=== PATIENT | female | born 1970 | race Caucasian/White ===

== ENCOUNTER → 2016-05-29 | Outpatient (CLI) | payer BC ==
--- NOTE | 2016-05-29 11:24 | XR ---
EXAMINATION TYPE: XR knee limited LT DATE OF EXAM: 05/29/2016 11:19 AM COMPARISON: 03/22/2010 HISTORY: Pain TECHNIQUE: Two views are submitted. FINDINGS: Joint spaces are preserved. Osseous structures are intact. No acute fracture seen. IMPRESSION: 1. No acute fracture or dislocation.
== END | disposition home or self-care (01) ==
LOC: RADXRMAIN 10:53
PROVIDERS: ATTEND Family Medicine
DX: M25.562 Pain in left knee (principal)

== ENCOUNTER → 2017-10-23 | Outpatient (CLI) | payer BC ==
--- NOTE | 2017-10-28 09:50 | MM ---
Reason for exam: screening (asymptomatic). Last mammogram was performed 2 years ago. Physical Findings: A clinical breast exam by your physician is recommended on an annual basis and results should be correlated with mammographic findings. MG 3D Screening Mammo W/Cad Bilateral CC and MLO view(s) were taken. Prior study comparison: October 27, 2015, bilateral MG screening mammo w CAD. May 25, 2011, bilateral digital screening mammo w/CAD. The breast tissue is heterogeneously dense. This may lower the sensitivity of mammography. There is no discrete abnormality. No significant changes when compared with prior studies. ASSESSMENT: Negative, BI-RAD 1 RECOMMENDATION: Routine screening mammogram of both breasts in 1 year.
== END | disposition home or self-care (01) ==
LOC: RADMAMWWP 09:42
PROVIDERS: ATTEND Family Medicine
DX: Z12.31 Encounter for screening mammogram for malignant neoplasm of breast (principal)
CPT/HCPCS: 77063; 77067

== ENCOUNTER → 2017-11-13 | Outpatient (CLI) | payer BC ==
[2017-11-13 11:06] LABS: T4, Free (Free Thyroxine) 0.86 ng/dL (0.78-2.19)
[2017-11-13 16:32] LABS: Progesterone 8.1 ng/mL; Vitamin D 25 Hydroxy 27.2 ng/mL (30.0-100.0)
[2017-11-13 16:37] LABS: Thyroid Peroxidase Antibodies 495.3 U/mL (0.0-60.0)
== END | disposition home or self-care (01) ==
LOC: LABWHC1 09:51
PROVIDERS: ATTEND Obstetrics & Gynecology
DX: E04.9 Nontoxic goiter, unspecified (principal); N92.0 Excessive and frequent menstruation with regular cycle; L65.9 Nonscarring hair loss, unspecified; R53.83 Other fatigue
CPT/HCPCS: 36415; 82306; 82607; 82670; 83001; 84144; 84403; 84439; 84443; 86376

== ENCOUNTER → 2018-01-09 | Outpatient (CLI) | payer BC | END | disposition home or self-care (01) | LOC: LABWHC1 11:54 | PROVIDERS: ATTEND Obstetrics & Gynecology | DX: E03.9 Hypothyroidism, unspecified (principal); N95.9 Unspecified menopausal and perimenopausal disorder; L65.9 Nonscarring hair loss, unspecified | CPT/HCPCS: 36415; 82670; 83001; 84403; 84443 ==

== ENCOUNTER → 2018-11-04 | Outpatient (CLI) | payer BC | LOC: LABWHC1 10:24 | PROVIDERS: ATTEND Internal Medicine Endocrinology, Diabetes & Metabolism | DX: E03.8 Other specified hypothyroidism (principal); R53.83 Other fatigue | CPT/HCPCS: 36415; 82024; 82533; 84443 ==

== ENCOUNTER → 2018-11-28 | Outpatient (CLI) | payer BC ==
--- NOTE | 2018-11-30 09:49 | US ---
EXAMINATION TYPE: US thyroid st tissue head/neck DATE OF EXAM: 11/28/2018 COMPARISON: NONE CLINICAL HISTORY: E04.9 Thyroid Nodule. Pt on thyroid meds x 1 year, goiter GLAND SIZE: Right Lobe: 4.2 x 1.4 x 1.3 cm Overall Parenchyma: heterogenous Left Lobe: 3.8 x 1.5 x 1.2 cm Overall Parenchyma: heterogeneous Isthmus Thickness: 0.2 cm Bilateral neck scanned, no evidence of lymphadenopathy. Heterogeneous gland bilaterally, no evidence of nodules. IMPRESSION: Normal thyroid scan
== END | disposition home or self-care (01) ==
LOC: RADUSMAIN 16:13
PROVIDERS: ATTEND Internal Medicine Endocrinology, Diabetes & Metabolism
DX: E04.9 Nontoxic goiter, unspecified (principal)
CPT/HCPCS: 76536

== ENCOUNTER → 2019-09-04 | Outpatient (CLI) | payer BC | END | disposition home or self-care (01) | LOC: LABWHC1 09:02 | PROVIDERS: ATTEND Internal Medicine Endocrinology, Diabetes & Metabolism | DX: E03.8 Other specified hypothyroidism (principal) | CPT/HCPCS: 36415; 84443 ==

== ENCOUNTER → 2020-05-27 | Outpatient (CLI) | payer BC | END | disposition home or self-care (01) | LOC: LABWHC1 14:34 | PROVIDERS: ATTEND Internal Medicine Endocrinology, Diabetes & Metabolism | DX: E03.8 Other specified hypothyroidism (principal) | CPT/HCPCS: 36415; 84443 ==

== ENCOUNTER → 2020-11-08 | Outpatient (CLI) | payer BC ==
[2020-11-08 10:48] LABS: Basophils % (A) 1 %; Eosinophils # (A) 0.2 k/uL (0-0.7); Eosinophils % (A) 4 %; HCT 42.4 % (34.0-46.0); Lymphocytes % (A) 18 %; MCH 30.5 pg (25.0-35.0); MCHC 33.1 g/dL (31.0-37.0); Mean Platelet Volume 7.3; Monocytes # (A) 0.3 k/uL (0-1.0); Monocytes % (A) 6 %; Neutrophils # (A) 3.8 k/uL (1.3-7.7); Neutrophils % (A) 70 %; Platelet Count 236 k/uL (150-450); RBC 4.61 m/uL (3.80-5.40); RDW 13.5 % (11.5-15.5); WBC 5.5 k/uL (3.8-10.6)
== END | disposition home or self-care (01) ==
LOC: LABPAT 08:51
PROVIDERS: ATTEND Obstetrics & Gynecology
DX: Z01.812 Encounter for preprocedural laboratory examination (principal); N94.6 Dysmenorrhea, unspecified; N92.0 Excessive and frequent menstruation with regular cycle
CPT/HCPCS: 36415; 85025

== ENCOUNTER 2020-11-14 10:09 | Day surgery (SDC) | payer BC ==
[2020-11-09 10:49] VITALS: BMI 30.7
--- NOTE | 2020-11-10 12:02 | HP ---
HISTORY AND PHYSICAL DATE OF ADMISSION: 11/14/2020 This is a 50-year-old white female who presented with bleeding complaints. Menses are regular, very heavy, and painful despite the use of [id number] nonsteroidal products. Her partner has a longstanding history of male factor infertility. She is requesting NovaSure endometrial ablation. Endometrial biopsy in the office is negative. PAST MEDICAL HISTORY: Significant for asthma, goiter, thyroid disease. PAST SURGICAL HISTORY: section 1995, previous tubal ligation. CURRENT MEDICATIONS: 1. Advair Diskus 250/150 mcg inhaler Blister with device. 2. Biotin daily. 3. FiberCon daily. 4. Fish oil daily. 5. L-Lysine daily. 6. Multivitamin daily. 7. Synthroid 75 mcg daily. ALLERGIES: NONE KNOWN. FAMILY HISTORY: Significant for diabetes, hypertension, unspecified heart issues. OBSTETRIC HISTORY: Vaginal delivery in 1992, and tubal ligation in 1995. SOCIAL HISTORY: Patient has never been a smoker. Current alcohol use just on occasion. She is employed at [employer] locally. She is single. REVIEW OF SYSTEMS: Review of systems is otherwise negative. PHYSICAL EXAMINATION: Patient is 5 feet 6 inches, 189 pounds. Blood pressure 128/80. GENERAL: General exam revealed negative HEENT, no thyromegaly, no cervical lymphadenopathy, trachea midline. Breasts are bilaterally symmetric with no skin changes, nipple discharge, axillary adenopathy or discernible lesions or masses. ABDOMEN: Soft, nontender. Normal bowel sounds. No organosplenomegaly. No tenderness. Cardiac exam reveals regular rate and rhythm with no murmur, click or rub. CHEST: Clear to auscultation in all ta anteriorly and posteriorly. Extremities reveal no edema, good range of motion, no diminished pulses. On pelvic exam, cervix is multiparous, uterus is small, anteverted, anteflexed, mobile, nontender and smooth. Adnexa are negative bilaterally. Rectal exam reveals good sphincter tone, no hemorrhoids, no rectal masses. IMPRESSION: Hypermenorrhea, dysmenorrhea, patient requesting NovaSure endometrial ablation. The risks, benefits and alternatives of this plan have been discussed in detail. We reviewed the risks of bleeding, infection, perforation or damage to the bladder, bowels, ureters or any pelvic organs. Risks of anesthesia, aspiration, nerve damage or even have been discussed. The ACOG pamphlet and the pamphlet on NovaSure ablation have been given and reviewed by the patient. All questions answered. MMODL / IJN: [id number] /
[~2020-11-14 10:09] MED LIST: DEXAMETHASONE SOD PHOSPHATE 4 MG/ML 1 ML VIAL IV ONE; HYDROmorphone 0.5 MG/0.5 ML SYRINGE IVP PRN; LACTATED RINGERS 1,000 ML IV SCH; ONDANSETRON 4 MG/2 ML VIAL IVP ONE; Pre Op ABX Message 1 EACH MISC MISCELLANE ONE
[2020-11-14] MEDS ORDERED: LIDOCAINE 1% (10MG/ML) FOR IV START INTRADERMA ONE (11:03)
[2020-11-14] MEDS ORDERED: MIDAZOLAM 2 MG/2 ML VIAL ONE (11:15)
[2020-11-14] MEDS ORDERED: KETOROLAC 15 MG/ML 1 ML VIAL ONE (11:15)
[2020-11-14] MEDS ORDERED: LIDOCAINE 1% INJ 10MG/ML (20 ML MDV) ONE (11:15)
[2020-11-14] MEDS ORDERED: fentaNYL (PF) 50 MCG/ML 2 ML AMP ONE (11:15)
[2020-11-14] MEDS ORDERED: PROPOFOL 10 MG/ML 20 ML VIAL IV ONE (11:15)
[2020-11-14 11:47] VITALS: TEMP 97.2
--- NOTE | 2020-11-14 11:49 | P.OP ---
Date of Procedure: 11/14/20 Preoperative Diagnosis: hypermenorrhea, novasure ablation Postoperative Diagnosis: same Procedure(s) Performed: hysteroscopy, novasure ablation Anesthesia: USMANA Surgeon: Angie Tamayo Estimated Blood Loss (ml): 5 IV fluids (ml): 300 Urine output (ml): 200 Pathology: none sent Condition: stable Disposition: PACU Operative Findings: normal apperaing endometrial cavity Description of Procedure: Patient is brought to the operating suite where general anesthetic is administered without difficulty. She's placed in the dorsal lithotomy position. The appropriate timeout is performed to assure proper patient and procedural identification. Urine hCG is negative. Bladder is drained for approximately 200 mL of clear yellow urine. Weighted speculum was placed into the vagina. Anterior lip of the cervix is grasped with a double-tooth tenaculum. Cervix sounds to a depth of 10 cm in the anteverted position. Cervix is gently and systematically dilated using Hanks dilators. Hysteroscope was placed. Cavity is distended using sterile saline. Inspection of the cavity reveals normal- appearing ostia, no fibroids or defects. Hysteroscope was removed. The NovaSure wand is then placed and seated. The uterine length of 6.5 cm is calibrated, width of 4.3 cm is noted. The machine is properly enabled. For 51 seconds and a power the 154 W. the procedure is carried out. When completed, the NovaSure wand is removed. Hysteroscope was once again placed and the cavity is noted to be thoroughly and uniformly blanched. Toradol is given prior to leaving the operative suite. All sponge needle and enhancement counts are correct. Patient is brought back to recovery room in excellent condition with a blood pressure 137/68, pulse 70, 97% O2 saturation. She will follow-up with me in the office in 2 weeks.
[2020-11-14 13:00] VITALS: RESP 18
[2020-11-14 13:12] VITALS: BP 162/79; PULSE 59
== END 2020-11-14 13:30 | disposition home or self-care (01) ==
LOC: OR 10:09
PROVIDERS: ATTEND Obstetrics & Gynecology
DX: N92.0 Excessive and frequent menstruation with regular cycle (principal); J45.909 Unspecified asthma, uncomplicated; E03.9 Hypothyroidism, unspecified; Z79.890 Hormone replacement therapy
CPT/HCPCS: 58563; 81025; J2250; J1100; J2405; J2001; J3010; J1885; J2704

== ENCOUNTER → 2020-11-25 | Outpatient (CLI) | payer BC ==
--- NOTE | 2020-11-28 09:19 | MM ---
Reason for exam: screening (asymptomatic). Last mammogram was performed 3 years and 1 month ago. Physical Findings: A clinical breast exam by your physician is recommended on an annual basis and results should be correlated with mammographic findings. MG 3D Screening Mammo W/Cad Bilateral CC and MLO view(s) were taken. Prior study comparison: October 23, 2017, bilateral MG 3d screening mammo w/cad. October 27, 2015, bilateral MG screening mammo w CAD. There are scattered fibroglandular densities. There is no discrete abnormality. ASSESSMENT: Negative, BI-RAD 1 RECOMMENDATION: Routine screening mammogram of both breasts in 1 year.
== END | disposition home or self-care (01) ==
LOC: RADMAMWWP 08:15
PROVIDERS: ATTEND Obstetrics & Gynecology
DX: Z12.31 Encounter for screening mammogram for malignant neoplasm of breast (principal)
CPT/HCPCS: 77063; 77067

== ENCOUNTER → 2020-12-23 | Outpatient (CLI) | payer BC | END | disposition home or self-care (01) | LOC: LABWHC1 10:31 | PROVIDERS: ATTEND Internal Medicine Endocrinology, Diabetes & Metabolism | DX: E03.8 Other specified hypothyroidism (principal) | CPT/HCPCS: 36415; 84443 ==

== ENCOUNTER → 2021-09-29 | Outpatient (CLI) | payer BC | END | disposition home or self-care (01) | LOC: LABWHC1 11:11 | PROVIDERS: ATTEND Internal Medicine Endocrinology, Diabetes & Metabolism | DX: E03.8 Other specified hypothyroidism (principal) | CPT/HCPCS: 36415; 84443 ==

== ENCOUNTER → 2022-02-01 | Outpatient (CLI) | payer BC ==
--- NOTE | 2022-02-02 16:31 | MM ---
Reason for Exam: Screening (asymptomatic). Last mammogram was performed 1 year(s) and 3 month(s) ago. Patient History: Menarche at age 8. First Full-Term at age 22. Postmenopausal. Patient has history of breast feeding. Risk Values: Ivelisse 5 year model risk: 1.1%. NCI Lifetime model risk: 8.4%. Prior Study Comparison: 10/27/2015 Bilateral Screening Mammogram, [facility]. 10/23/2017 Bilateral Screening Mammogram, [facility]. 11/25/2020 Bilateral Screening Mammogram, [facility]. Tissue Density: There are scattered fibroglandular densities. Findings: Analyzed By CAD. No significant interval change. Focal asymmetries in the upper outer aspect left breast, stable from comparison. No suspicious groups of microcalcifications, spiculated or lobular masses, architectural distortion or other secondary signs of malignancy are mammographically apparent. Overall Assessment: Benign, BI-RAD 2 Management: Screening Mammogram of both breasts in 1 year. A negative mammogram report should not preclude additional follow up of suspicious palpable abnormalities. Patient should continue monthly self breast exam. A clinical breast exam by your physician is recommended on an annual basis and results should be correlated with mammographic findings. Electronically signed and approved by: Braden Beaver D.O. Radiologis
== END | disposition home or self-care (01) ==
LOC: RADMAMWWP 10:18
PROVIDERS: ATTEND Obstetrics & Gynecology
DX: Z12.31 Encounter for screening mammogram for malignant neoplasm of breast (principal); Z78.0 Asymptomatic menopausal state
CPT/HCPCS: 77063; 77067

== ENCOUNTER → 2022-08-06 | Outpatient (CLI) | payer BC ==
[2022-08-06 16:10] LABS: Basophils # (A) 0.03 X 10*3/uL; Basophils % (A) 0.5 %; Eosinophils # (A) 0.22 X 10*3/uL; Eosinophils % (A) 3.7 %; HCT 43.6 %; HGB 14.1 d/dL; Lymphocytes # (A) 1.13 X 10*3/uL; Lymphocytes % (A) 18.9 %; MCH 29.3 pg; MCHC 32.3 d/dL; MCV 90.5 FL; Mean Platelet Volume 10.4 FL; Monocytes # (A) 0.46 X 10*3/uL; Monocytes % (A) 7.7 %; NRBC Per 100 WBC 0 X 10*3/uL; Neutrophils # (A) 4.13 X 10*3/uL; Platelet Count 237 X 10*3/uL; RBC 4.82 X 10*6/uL; RDW 12.9 %; WBC 5.98 X 10*3/uL
[2022-08-06 16:18] LABS: Testosterone <10.00 ng/mL
[2022-08-06 18:21] LABS: Follicle Stimulating Hormone 62.1 mIU/mL; Luteinizing Hormone 44.4 mIU/mL
== END | disposition home or self-care (01) ==
LOC: LABWHC1 09:11
PROVIDERS: ATTEND Internal Medicine Endocrinology, Diabetes & Metabolism
DX: N95.1 Menopausal and female climacteric states (principal); E03.8 Other specified hypothyroidism; R53.83 Other fatigue
CPT/HCPCS: 36415; 82306; 82607; 82672; 83001; 83002; 84403; 84443; 85025

== ENCOUNTER 2022-10-18 06:31 | Inpatient (IN) | payer BC ==
[2022-10-18] MEDS ORDERED: KETOROLAC 15 MG/ML 1 ML VIAL IVP STA (06:50)
[2022-10-18] MEDS ORDERED: SODIUM CHLORIDE 0.9% 1,000 ML IV STA (06:50)
[2022-10-18] MEDS ORDERED: HEPARIN SODIUM,PORCINE (1 ML) 2,500 UNIT in SODIUM CHLORIDE 0.9% 250 ML IRRIGATION PRN (07:00)
[2022-10-18] MEDS ORDERED: HEPARIN SODIUM,PORCINE 10,000 UNIT in SODIUM CHLORIDE 0.9% 1,000 ML IRRIGATION PRN (07:00)
[2022-10-18 07:20] LABS: Basophils % (A) 0 %; Eosinophils # (A) 0.2 k/uL (0-0.7); Eosinophils % (A) 2 %; HCT 40.8 % (34.0-46.0); HGB 13.9 gm/dL (11.4-16.0); Lymphocytes # (A) 1.3 k/uL (1.0-4.8); Lymphocytes % (A) 17 %; MCH 30.2 pg (25.0-35.0); MCHC 34.2 g/dL (31.0-37.0); MCV 88.5 fL (80.0-100.0); Mean Platelet Volume 7.5; Monocytes # (A) 0.3 k/uL (0-1.0); Monocytes % (A) 5 %; Neutrophils # (A) 5.8 k/uL (1.3-7.7); Neutrophils % (A) 75 %; Platelet Count 193 k/uL (150-450); RBC 4.61 m/uL (3.80-5.40); RDW 13.3 % (11.5-15.5); WBC 7.7 k/uL (3.8-10.6)
--- NOTE | 2022-10-18 07:23 | ED ---
ENT HPI - General Chief complaint: ENT Stated complaint: Chest pain, Back pain, Nausea Time Seen by Provider: 10/18/22 06:42 Source: patient, RN notes reviewed Mode of arrival: ambulatory Limitations: no limitations - History of Present Illness Initial comments: This a 52-year-old female presents emergency Department chief complaint of not feeling well. Patient states she woke up with the bathroom states that she has diffuse body aches including her joints, chest back abdomen. She does admit to nausea she states pain is achiness it's not deep chest pain. She does have history asthma does not feel slightly short of breath. She states she just fe els swollen in her ears throat and chest region. The patient states she was fine yesterday no sick contacts no reported fever. She has a difficult swan states it is very sore to swallow. She denies any prior cardiac disease denies light and leg swelling. - Related Data Home Medications Medication Instructions Recorded Confirmed Levothyroxine Sodium [Synthroid] 75 mcg PO DAILY 11/09/20 10/18/22 Multivitamins, Thera [Multivitamin 1 tab PO DAILY 11/09/20 10/18/22 (formulary)] Allergies Allergy/AdvReac Type Severity Reaction Status Date / Time No Known Allergies Allergy Verified 11/09/20 10:41 Review of Systems ROS Statement: Those systems with pertinent positive or pertinent negative responses have been documented in the HPI. ROS Other: All systems not noted in ROS Statement are negative. Past Medical History Past Medical History: Asthma, Thyroid Disorder History of Any Multi-Drug Resistant Organisms: None Reported Past Surgical History: Section Past Psychological History: No Psychological Hx Reported Smoking Status: Never smoker Past Alcohol Use History: None Reported Past Drug Use History: None Reported General Exam Limitations: no limitations General appearance: alert, in no apparent distress Head exam: Present: atraumatic, normocephalic, normal inspection Eye exam: Present: normal appearance, PERRL, EOMI. Absent: scleral icterus, conjunctival injection, periorbital swelling ENT exam: Present: normal exam, normal oropharynx, mucous membranes moist Neck exam: Present: normal inspection, full ROM. Absent: tenderness, meningismus, lymphadenopathy Respiratory exam: Present: normal lung sounds bilaterally. Absent: respiratory distress, wheezes, rales, rhonchi, stridor Cardiovascular Exam: Present: regular rate, normal rhythm, normal heart sounds. Absent: systolic murmur, diastolic murmur, rubs, gallop, clicks Course Vital Signs 10/18/22 10/18/22 10/18/22 06:31 08:00 08:47 Temperature 97.9 F Pulse Rate 63 70 60 Respiratory 18 20 20 Rate Blood Pressure 151/97 140/72 125/76 O2 Sat by Pulse 100 98 100 Oximetry 10/18/22 10/18/22 10/18/22 11:00 11:54 13:00 Temperature Pulse Rate 63 72 72 Respiratory 16 16 16 Rate Blood Pressure 109/76 115/76 112/75 O2 Sat by Pulse 96 98 99 Oximetry Medical Decision Making - Medical Decision Making Was pt. sent in by a medical professional or institution (, PA, METAL BALER, urgent care, hospital, or snf...) When possible be specific @ -No Did you speak to anyone other than the patient for history (EMS, parent, family, police, friend...)? What history was obtained from this source @ -No Did you review nursing and triage notes (agree or disagree)? Why? @ -I reviewed and agree with nursing and triage notes Were old charts reviewed (outside hosp., previous admission, EMS record, old EKG, old radiological studies, urgent care reports/EKG's, snf records)? Report findings @ -No old charts were reviewed Differential Diagnosis (chest pain, altered mental status, abdominal pain women, abdominal pain men, vaginal bleeding, weakness, fever, dyspnea, syncope, headache, dizziness, GI bleed, back pain, seizure, CVA, palpatations, mental h ealth, musculoskeletal)? @ -notDifferential Chest Pain: Stable Angina, Unstable Angina, STEMI, NSTEMI Aortic Dissection, Pneumothorax, Musculoskeletal, Esophageal Spasm GERD, Cholecystitis, Pancreatitis, Zoster, this is not meant to be an all-inclusive list. ble EKG interpreted by me (3pts min.). @ -As above X-rays interpreted by me (1pt min.). @ -Chest x-ray shows no acute process CT interpreted by me (1pt min.). @ -None done U/S interpreted by me (1pt. min.). @ -None done What testing was considered but not performed or refused? (CT, X-rays, U/S, labs)? Why? @ -None What meds were considered but not given or refused? Why? @ -None Did you discuss the management of the patient with other professionals (professionals i.e. , PA, METAL BALER, lab, RT, psych nurse, social media editor, tank farm operator, teacher, fire prevention officer, case work aide)? Give summary @ -Dr. Centeno for admission given secondary elevation of cardiac enzymes. Patient presented for URI symptoms. I did contact cardiology patient was started on heparin. Was smoking cessation discussed for >3mins.? @ -[No] Was critical care preformed (if so, how long)? @ -[35 minutes] Were there social determinants of health that impacted care today? How? (Homelessness, low income, unemployed, alcoholism, drug addiction, transportation, low edu. Level, literacy, decrease access to med. care, usp, rehab)? @ -[No] Was there de-escalation of care discussed even if they declined (Discuss DNR or withdrawal of care, Hospice)? DNR status @ -[No] What co-morbidities impacted this encounter? (DM, HTN, Smoking, COPD, CAD, Cancer, CVA, ARF, Chemo, Hep., AIDS, mental health diagnosis, sleep apnea, morbid obesity)? @ -[Asthma] Was patient admitted / discharged? Hospital course, mention meds given and route, prescriptions, significant lab abnormalities, going to OR and other pertinent info. @ -[Admitted patient presented for URI symptoms, mild chest discomfort. Patient on have troponin 0.129. Patient is given aspirin, heparin. Landscape Architecture Professor was contacted, consult. Patient states she was feeling improved, nitro paste was applied. Patient updated on results.] Undiagnosed new problem with uncertain prognosis? @ -[No] Drug Therapy requiring intensive monitoring for toxicity (Heparin, Nitro, Insulin, Cardizem)? @ -[Heparin] Were any procedures done? @ -[No] Diagnosis/symptom? @ -[NSTEMI] Acute, or Chronic, or Acute on Chronic? @ -[Acute] Uncomplicated (without systemic symptoms) or Complicated (systemic symptoms)? @ -[, Complicated] Side effects of treatment? @ -[No] Exacerbation, Progression, or Severe Exacerbation? @ -[No] Poses a threat to life or bodily function? How? (Chest pain, USA, IA, pneumonia, PE, COPD, DKA, ARF, appy, cholecystitis, CVA, Diverticulitis, Homicidal, Suicidal, threat to staff... and all critical care pts) @ -[Yes chest pain at risk for cardiac arrest - Lab Data Result diagrams: 10/18/22 07:06 10/18/22 07:06 Lab Results 10/18/22 10/18/22 10/18/22 Range/Units 07:00 07:06 07:06 WBC 7.7 (3.8-10.6) k/uL RBC 4.61 (3.80-5.40) m/uL Hgb 13.9 (11.4-16.0) gm/dL Hct 40.8 (34.0-46.0) % MCV 88.5 (80.0-100.0) fL MCH 30.2 (25.0-35.0) pg MCHC 34.2 (31.0-37.0) g/dL RDW 13.3 (11.5-15.5) % Plt Count 193 (150-450) k/uL MPV 7.5 Neutrophils % 75 % Lymphocytes % 17 % Monocytes % 5 % Eosinophils % 2 % Basophils % 0 % Neutrophils # 5.8 (1.3-7.7) k/uL Lymphocytes # 1.3 (1.0-4.8) k/uL Monocytes # 0.3 (0-1.0) k/uL Eosinophils # 0.2 (0-0.7) k/uL Basophils # 0.0 (0-0.2) k/uL Sodium 137 (137-145) mmol/L Potassium 3.7 (3.5-5.1) mmol/L Chloride 107 (98-107) mmol/L Carbon Dioxide 23 (22-30) mmol/L Anion Gap 7 mmol/L BUN 15 (7-17) mg/dL Creatinine 0.63 (0.52-1.04) mg/dL Est GFR (CKD-EPI)AfAm >90 (>60 ml/min/1.73 sqM) Est GFR (CKD-EPI)NonAf >90 (>60 ml/min/1.73 sqM) Glucose 112 H (74-99) mg/dL Calcium 9.0 (8.4-10.2) mg/dL Magnesium 1.9 (1.6-2.3) mg/dL Total Bilirubin 0.5 (0.2-1.3) mg/dL AST 23 (14-36) U/L ALT 23 (4-34) U/L Alkaline Phosphatase 51 (38-126) U/L Troponin I (0.000-0.034) ng/mL Total Protein 5.9 L (6.3-8.2) g/dL Albumin 3.6 (3.5-5.0) g/dL Influenza Type A (PCR) Not Detected (Not Detectd) Influenza Type B (PCR) Not Detected (Not Detectd) RSV (PCR) Not Detected (Not Detectd) SARS-CoV-2 (PCR) Not Detected (Not Detectd) Group A Strep (PCR) (Not Detectd) 10/18/22 10/18/22 Range/Units 07:06 07:06 WBC (3.8-10.6) k/uL RBC (3.80-5.40) m/uL Hgb (11.4-16.0) gm/dL Hct (34.0-46.0) % MCV (80.0-100.0) fL MCH (25.0-35.0) pg MCHC (31.0-37.0) g/dL RDW (11.5-15.5) % Plt Count (150-450) k/uL MPV Neutrophils % % Lymphocytes % % Monocytes % % Eosinophils % % Basophils % % Neutrophils # (1.3-7.7) k/uL Lymphocytes # (1.0-4.8) k/uL Monocytes # (0-1.0) k/uL Eosinophils # (0-0.7) k/uL Basophils # (0-0.2) k/uL Sodium (137-145) mmol/L Potassium (3.5-5.1) mmol/L Chloride (98-107) mmol/L Carbon Dioxide (22-30) mmol/L Anion Gap mmol/L BUN (7-17) mg/dL Creatinine (0.52-1.04) mg/dL Est GFR (CKD-EPI)AfAm (>60 ml/min/1.73 sqM) Est GFR (CKD-EPI)NonAf (>60 ml/min/1.73 sqM) Glucose (74-99) mg/dL Calcium (8.4-10.2) mg/dL Magnesium (1.6-2.3) mg/dL Total Bilirubin (0.2-1.3) mg/dL AST (14-36) U/L ALT (4-34) U/L Alkaline Phosphatase (38-126) U/L Troponin I 0.129 H* (0.000-0.034) ng/mL Total Protein (6.3-8.2) g/dL Albumin (3.5-5.0) g/dL Influenza Type A (PCR) (Not Detectd) Influenza Type B (PCR) (Not Detectd) RSV (PCR) (Not Detectd) SARS-CoV-2 (PCR) (Not Detectd) Group A Strep (PCR) NOT DETECTED (Not Detectd) - EKG Data -: EKG Interpreted by Me EKG Comments: EKG 27:31 sinus rhythm with rate of 62 [place] 161/93 QT status QTC 400/4 for Q-wave notably 3, minimal changes in inferior leads. Critical Care Time Critical Care Time: Yes Total Critical Care Time: 35 Disposition Clinical Impression: NSTEMI (non-ST elevated myocardial infarction) Disposition: ADMITTED IP TO THIS HOSP Condition: Fair Time of Disposition: 08:58
[2022-10-18 07:39] LABS: ALT 23 U/L (4-34); AST 23 U/L (14-36); African American GFR (CKD) >90 (>60 ml/min/1.73 sqM); Albumin 3.6 g/dL (3.5-5.0); Alkaline Phosphatase 51 U/L (38-126); Anion Gap 7 mmol/L; Blood Urea Nitrogen 15 mg/dL (7-17); Carbon Dioxide 23 mmol/L (22-30); Chloride 107 mmol/L (98-107); Glucose 112 mg/dL (74-99); Magnesium 1.9 mg/dL (1.6-2.3); Non-African American GFR(CKD) >90 (>60 ml/min/1.73 sqM); Potassium 3.7 mmol/L (3.5-5.1); Sodium 137 mmol/L (137-145); Total Bilirubin 0.5 mg/dL (0.2-1.3); Total Protein 5.9 g/dL (6.3-8.2)
--- NOTE | 2022-10-18 08:01 | XR ---
EXAMINATION TYPE: XR chest 2V DATE OF EXAM: 10/18/2022 7:48 AM COMPARISON: None TECHNIQUE: XR chest 2V Frontal and lateral views of the chest. CLINICAL INDICATION:Female, 52 years old with history of difficulty breathing; FINDINGS: Lungs/Pleura: There is no evidence of pleural effusion, focal consolidation, or pneumothorax. Pulmonary vascularity: Unremarkable. Heart/mediastinum: Cardiomediastinal silhouette is unremarkable. Musculoskeletal: No acute osseous pathology. Other findings: None IMPRESSION: No acute cardiopulmonary disease/process.
[2022-10-18] MEDS ORDERED: HEPARIN SODIUM 1,000 UN/ML (10ML VL) IV ONE (08:45)
[2022-10-18] MEDS ORDERED: HEPARIN SODIUM 1,000 UN/ML (10ML VL) IV PRN (08:45)
[2022-10-18] MEDS ORDERED: HEPARIN SOD,PORK IN 0.45% NACL 25,000 UNIT in 0.45% NACL 1 250ML.BAG IV SCH (08:45)
[2022-10-18] MEDS ORDERED: ASPIRIN 81 MG PO STA (08:50)
[2022-10-18] MEDS ORDERED: NITROGLYCERIN OINT 1 INCH/GM PACKET TOPICAL STA (08:54)
[2022-10-18] MEDS ORDERED: NITROGLYCERIN SL TABS 0.4 MG TAB SUBLINGUAL PRN ×2 (08:58→12:23)
--- NOTE | 2022-10-18 12:15 | CA ---
Transthoracic Echo Report Name: Tricia Leon Age: 52 Gender: F : 1970 Exam Date: 10/18/2022 11:27 Exam Location: [facility] Ht (in): 66 Wt (lb): 185 Ordering Physician: Bert Becerra Attending/Referring Phys: [id number], Mariam Premium Note Interest Calculator Clerk Bsimark Mendoza Procedure CPT: Indications: nstemi Cardiac Hx: Technical Quality: Fair Contrast 1: Total Dose (mL): Contrast 2: Total Dose (mL): MEASUREMENTS (Male / Female) Normal Values 2D ECHO LV Diastolic Diameter PLAX 4.4 cm 4.2 - 5.9 / 3.9 - 5.3 cm LV Systolic Diameter PLAX 3.2 cm IVS Diastolic Thickness 1.0 cm 0.6 - 1.0 / 0.6 - 0.9 cm LVPW Diastolic Thickness 1.3 cm 0.6 - 1.0 / 0.6 - 0.9 cm LV Relative Wall Thickness 0.5 RV Internal Dim ED PLAX 2.9 cm LVOT Diameter 2.2 cm Aortic Root Diameter 3.0 cm LA Systolic Diameter LX 2.5 cm 3.0 - 4.0 / 2.7 - 3.8 cm LV Diastolic Volume MOD BP 74.6 cm??? 67 - 155 / 56 - 104 cm??? LV Systolic Volume MOD BP 19.6 cm??? 22 - 58 / 19 - 49 cm??? LV Ejection Fraction MOD BP 73.7 % >= 55 % LV Cardiac Index MOD BP 1839.2 cm???/min???m??? LV Diastolic Volume MOD 4C 90.2 cm??? LV Systolic Volume MOD 4C 22.4 cm??? LV Ejection Fraction MOD 4C 75.2 % LV Cardiac Index MOD 4C 2271.0 cm???/min???m??? LV Diastolic Length 4C 7.9 cm LV Systolic Length 4C 6.1 cm LV Diastolic Volume MOD 2C 55.1 cm??? LV Systolic Volume MOD 2C 16.9 cm??? LV Ejection Fraction MOD 2C 69.3 % LV Cardiac Index MOD 2C 1278.1 cm???/min???m??? LV Diastolic Length 2C 7.0 cm LV Systolic Length 2C 6.0 cm LA Volume 43.9 cm??? 18 - 58 / 22 - 52 cm??? Ascending Aorta Diameter 3.3 cm DOPPLER AV Peak Velocity 150.6 cm/s AV Peak Gradient 9.1 mmHg AI Peak Velocity 431.8 cm/s AI Peak Gradient 74.6 mmHg AI Pressure Half Time 562.0 ms LVOT Peak Velocity 119.7 cm/s LVOT Peak Gradient 5.7 mmHg AV Area Cont Eq pk 3.0 cm??? MV Peak Velocity 99.7 cm/s MV Peak Gradient 4.0 mmHg MV Mean Velocity 47.9 cm/s MV Mean Gradient 1.2 mmHg MV Velocity Time Integral 38.1 cm Mitral E Point Velocity 68.9 cm/s Mitral A Point Velocity 74.3 cm/s Mitral E to A Ratio 0.9 MV Deceleration Time 234.0 ms MV E' Velocity 6.8 cm/s Mitral E to MV E' Ratio 10.2 TR Peak Velocity 173.4 cm/s TR Peak Gradient 12.0 mmHg Right Ventricular Systolic Press 17.1 mmHg PV Peak Velocity 87.8 cm/s PV Peak Gradient 3.1 mmHg FINDINGS Left Ventricle Normal LV size and wall thickness. Left ventricular ejection fraction is estimated at 55-60 %. Right Ventricle Normal right ventricular size. Right Atrium Normal right atrial size. Left Atrium Normal left atrial size. LA volume index= 23ml/m2 Mitral Valve Structurally normal mitral valve. Aortic Valve Trileaflet aortic valve. Moderate AI. Tricuspid Valve Structurally normal tricuspid valve. Mild TR. Pulmonic Valve Pulmonic valve not well visualized. Trace PI. Pericardium Normal pericardium. Aorta Normal size aortic root and proximal ascending aorta. CONCLUSIONS Normal LV systolic function Moderate aortic regurgitation Previewed by: Dr. Da Huertas MD (Electronically Signed) Final Date: 18 October 2022 12:14
[2022-10-18] MEDS ORDERED: ASPIRIN 325 MG TAB PO STA (12:23)
[2022-10-18] MEDS ORDERED: ALPRAZolam 0.5 MG TAB PO PRN (12:23)
[2022-10-18] MEDS ORDERED: ATORVASTATIN 80 MG TAB PO STA (12:23)
[2022-10-18] MEDS ORDERED: ALPRAZolam 0.25 MG TAB PO PRN (12:23)
--- NOTE | 2022-10-18 13:28 | P.HPIM ---
History of Present Illness H&P Date: 10/18/22 History of present illness; she is 52-year-old lady with past medical history si gnificant for hypothyroidism presented to the ER this morning because of complaint of ear fullness and not feeling well. Patient stated that she was all right when she woke up this morning when she started noticing that her ears were full. Started also feeling generalized body aches, this was followed by her noticing that she was having chest pressure that was central in location and nonradiating, no aggravating or relieving factors associated with this chest pressure. Patient also complaining of shortness of breath on exertion for the last few days. Patient also complaining of swelling of feet. Because of this feeling of uneasiness she came to the ER Initial lab work done in the ER showed WBC 7.7, hemoglobin 13.9, platelet count 193, sodium 137, potassium 3.7, BUN 15, creatinine 0.63, d-dimer 0.17, troponin 0.129 EKG done in the ER ventricle rate 62, QRS 93, no ST segment elevation or T-wave inversion seen Chest x-ray done in the ER showed no acute cardiopulmonary process Patient was started on pharmacy dose heparin and was admitted to medicine service REVIEW OF SYSTEMS: CONSTITUTIONAL: As mentioned in HPI HEENT: No recent visual problems or hearing problems. Denied any sore throat. CARDIOVASCULAR: As mentioned in HPI PULMONARY: As mentioned in HPI GASTROINTESTINAL: No diarrhea, no nausea, no vomiting, no abdominal pain. NEUROLOGICAL: No headaches, no weakness, no numbness. HEMATOLOGICAL: Denies any bleeding or petechiae. GENITOURINARY: Denies any burning micturition, frequency, or urgency. MUSCULOSKELETAL/RHEUMATOLOGICAL: Denies any joint pain, swelling, or any muscle pain. ENDOCRINE: Denies any polyuria or polydipsia. The rest of the 14-point review of systems is negative. PHYSICAL EXAMINATION: GENERAL: The patient is alert and oriented x3, not in any acute distress. Well developed, well nourished. HEENT: Pupils are round and equally reacting to light. EOMI. No scleral icterus. No conjunctival pallor. Normocephalic, atraumatic. No pharyngeal erythema. No thyromegaly. CARDIOVASCULAR: S1 and S2 present. No murmurs, rubs, or gallops. PULMONARY: Chest is clear to auscultation, no wheezing or crackles. ABDOMEN: Soft, nontender, nondistended, normoactive bowel sounds. No palpable organomegaly. MUSCULOSKELETAL: No joint swelling or deformity. EXTREMITIES: No cyanosis, clubbing, or pedal edema. NEUROLOGICAL: Gross neurological examination did not reveal any focal deficits. SKIN: No rashes. Assessment and plan NSTEMI Hypothyroidism Monitor vital signs Monitor CBC Monitor CMP Continue telemetry monitoring Trend troponin Ordered 2-D echo Ordered d-dimer Ordered HbA1c levels Continue pharmacy dose heparin Cardiology consulted Labs and medication were reviewed.. Continue same treatment. Continue with symptomatic treatment. Resume home medication. Monitor labs and vitals. DVT and GI prophylaxis. Further recommendations as per clinical course of the patient Dictation was produced using [employer] dictation software. please excuse any grammatical, word or spelling errors. Past Medical History Past Medical History: Asthma, Thyroid Disorder History of Any Multi-Drug Resistant Organisms: None Reported Past Surgical History: Section Past Psychological History: No Psychological Hx Reported Smoking Status: Never smoker Past Alcohol Use History: None Reported Past Drug Use History: None Reported Medications and Allergies Home Medications Medication Instructions Recorded Confirmed Type Levothyroxine Sodium [Synthroid] 75 mcg PO DAILY 11/09/20 10/18/22 History Multivitamins, Thera [Multivitamin 1 tab PO DAILY 11/09/20 10/18/22 History (formulary)] Allergies Allergy/AdvReac Type Severity Reaction Status Date / Time No Known Allergies Allergy Verified 11/09/20 10:41 Physical Exam Vitals: Vital Signs Temp Pulse Resp BP Pulse Ox 10/18/22 13:00 72 16 112/75 99 10/18/22 11:54 72 16 115/76 98 10/18/22 11:00 63 16 109/76 96 10/18/22 08:47 60 20 125/76 100 10/18/22 08:00 70 20 140/72 98 10/18/22 06:31 97.9 F 63 18 151/97 100 Intake and Output 10/17/22 10/18/22 10/18/22 22:59 06:59 14:59 Other: Weight 83.915 kg Results CBC & Chem 7: 10/18/22 07:06 10/18/22 07:06 Labs: Abnormal Lab Results - Last 24 Hours (Table) 10/18/22 10/18/22 10/18/22 Range/Units 07:06 07:06 11:18 APTT 61.2 H (22.0-30.0) sec Glucose 112 H (74-99) mg/dL Troponin I 0.129 H* (0.000-0.034) ng/mL Total Protein 5.9 L (6.3-8.2) g/dL
[2022-10-18] MEDS ORDERED: VERAPAMIL 2.5 MG/ML 2 ML AMP ONE (14:18)
[2022-10-18] MEDS ORDERED: HEPARIN SODIUM 1,000 UN/ML (10ML VL) ONE (14:36)
--- NOTE | 2022-10-18 14:36 | P.CRDCN ---
History of Present Illness Consult date: 10/18/22 Consult reason: non-Q-wave IN History of present illness: History of present illness: This is a 52 year old female with no previous cardiac history. She has a past medical history of hypothyroidism. We have been asked to evaluate her for non-ST elevated myocardial infarction. Patient states she woke up and her ears, lips and throat all felt swollen. Then she developed chest pressure and squeezing sensation in her chest around to her back and arm. This all started around 5 AM when she went to get up to the bathroom. She also had some s hortness of breath and sweats. She denies any syncopal episodes, no lightheadedness or dizziness, no palpitations. Patient states the pain lasted until she arrived to the hospital. The patient is seen at shortly after 12 that just eaten lunch. EKG nonspecific inferior changes Chest x-ray:No acute process. Echocardiogram obtained 10/18/2022 revealed normal LV function, moderate aortic regurgitation. CBC unremarkable. D-dimer less than 0.17. Electrolytes and renal function normal. Blood sugar 112. Troponin 0.129, 16.5. Influenza A, influenza B, RSV, Covid 19, group A strep not detected. Home cardiac medications: none Review Of Systems: At the time of my evaluation: Constitutional: No fever, no chills. No weakness, fatigue or lethargy. EENT: No headache. No dizziness. Lungs: No shortness of breath, cough, no sputum production. No wheezing. Cardiovascular: No chest pain, no lower extremity edema. No palpitations. No paroxysmal nocturnal dyspnea. No orthopnea. No lightheadedness or dizziness. No syncopal episodes. Abdominal: No abdominal pain. No nausea, vomiting. No diarrhea. No constipation. No bloody or tarry stools. Genitourinary: No dysuria.. No urinary retention. Musculoskeletal: No myalgias. No muscle weakness, no frequent falls. No back pain. No neck pain. Integumentary: No wounds. No rash. No unusual bruising. Neurologic: No aphasia. No facial droop. No change in mentation. No head injury. No headache. Physical examination: Gen: This is a 52-year-old female. She is resting on ER stretcher and appears to be comfortable and in no acute distress VS: reviewed HEENT: Head is atraumatic, normocephalic. Pupils equal, round. Sclerae is anicteric. NECK: Supple. No JVD. . LUNGS: Clear to auscultation. No wheezes or rhonchi. No intercostal retractions. HEART: Regular rate and rhythm. No murmur. ABDOMEN: Soft No tenderness. EXTREMITIES: No pedal edema. No calf tenderness. NEUROLOGICAL: Patient is awake, alert and oriented x3. Assessment: Acute coronary syndrome hypothyroidism Plan: start patient on heparin drip Start patient on aspirin 81 mg daily, atorvastatin 80 mg daily, Lopressor 12.5 mg twice daily P.atient will be taken to the orthodontic lab technician for cardiac catheterization with Dr. Land today Further recommendations to follow based upon clinical course Thank you kindly for this consultation. Nurse practitioner note has been reviewed, I agree with documented findings and plan of care. Patient was seen and examined. Past Medical History Past Medical History: Asthma, Thyroid Disorder History of Any Multi-Drug Resistant Organisms: None Reported Past Surgical History: Section Past Psychological History: No Psychological Hx Reported Smoking Status: Never smoker Past Alcohol Use History: None Reported Past Drug Use History: None Reported Medications and Allergies Home Medications Medication Instructions Recorded Confirmed Type Levothyroxine Sodium [Synthroid] 75 mcg PO DAILY 11/09/20 10/18/22 History Multivitamins, Thera [Multivitamin 1 tab PO DAILY 11/09/20 10/18/22 History (formulary)] Allergies Allergy/AdvReac Type Severity Reaction Status Date / Time No Known Allergies Allergy Verified 11/09/20 10:41 Physical Exam Vitals: Vital Signs Temp Pulse Resp BP Pulse Ox 10/18/22 11:54 72 16 115/76 98 10/18/22 11:00 63 16 109/76 96 10/18/22 08:47 60 20 125/76 100 10/18/22 08:00 70 20 140/72 98 10/18/22 06:31 97.9 F 63 18 151/97 100 Intake and Output 10/17/22 10/18/22 10/18/22 22:59 06:59 14:59 Other: Weight 83.915 kg Results 10/18/22 07:06 10/18/22 07:06 Cardiac Enzymes 10/18/22 10/18/22 Range/Units 07:06 07:06 AST 23 (14-36) U/L Troponin I 0.129 H* (0.000-0.034) ng/mL Coagulation 10/18/22 Range/Units 11:18 APTT 61.2 H (22.0-30.0) sec CBC 10/18/22 Range/Units 07:06 WBC 7.7 (3.8-10.6) k/uL RBC 4.61 (3.80-5.40) m/uL Hgb 13.9 (11.4-16.0) gm/dL Hct 40.8 (34.0-46.0) % Plt Count 193 (150-450) k/uL Comprehensive Metabolic Panel 10/18/22 Range/Units 07:06 Sodium 137 (137-145) mmol/L Potassium 3.7 (3.5-5.1) mmol/L Chloride 107 (98-107) mmol/L Carbon Dioxide 23 (22-30) mmol/L BUN 15 (7-17) mg/dL Creatinine 0.63 (0.52-1.04) mg/dL Glucose 112 H (74-99) mg/dL Calcium 9.0 (8.4-10.2) mg/dL AST 23 (14-36) U/L ALT 23 (4-34) U/L Alkaline Phosphatase 51 (38-126) U/L Total Protein 5.9 L (6.3-8.2) g/dL Albumin 3.6 (3.5-5.0) g/dL Current Medications Generic Name Dose Route Start Last Admin Trade Name Freq PRN Reason Stop Dose Admin Aspirin 325 mg 10/19/22 09:00 Aspirin 325 Mg Tab PO DAILY [facility] Heparin Sodium (Porcine) 0 unit 10/18/22 08:45 Heparin Sodium 1,000 Un/Ml (10ml Vl) IV PER PROTOCOL PRN Low PTT Protocol Heparin Sodium/Sodium Chloride 250 mls @ 10 mls/hr 10/18/22 08:45 10/18/22 09:00 25,000 unit/ Sodium Chloride IV 11.917 units/kg/hr .Q24H ARMIN 10 mls/hr Administration Protocol 11.917 UNITS/KG/HR Nitroglycerin 0.4 mg 10/18/22 08:58 Nitroglycerin Sl Tabs 0.4 Mg Tab SUBLINGUAL Q5M PRN Chest Pain Intake and Output 10/17/22 10/18/22 10/18/22 22:59 06:59 14:59 Other: Weight 83.915 kg 10/18/22 07:06 10/18/22 07:06
[2022-10-18] MEDS ORDERED: IV FLUID CONTINUATION 950 ML IV ONE (14:38)
[2022-10-18] MEDS ORDERED: MIDAZOLAM 2 MG/2 ML VIAL IVP ONE (14:45)
[2022-10-18] MEDS ORDERED: LIDOCAINE 1% INJ 10MG/ML (20 ML MDV) SQ ONE (14:46)
[2022-10-18] MEDS ORDERED: VERAPAMIL SYRINGE (5 MG/10 ML) INTRAARTER ONE (14:48)
[2022-10-18] MEDS ORDERED: IOPAMIDOL-370 100ML BTL INJ ONE (14:55)
[2022-10-18] MEDS ORDERED: SODIUM CHLORIDE 0.9% 1,000 ML IV SCH (15:00)
[2022-10-18] MEDS ORDERED: RX INFO: IV CONTRAST WAS GIVEN 1 EACH MISC MISCELLANE PRN (15:00)
--- NOTE | 2022-10-18 15:04 | P.PCN ---
Date of Procedure: 10/18/22 Operative Findings: CARDIAC CATHETERIZATION PERFORMING PHYSICIAN: James Land MD, RPVI PROCEDURE PERFORMED: 1. Selective right and left coronary angiogram 2. Left heart catheterization INDICATION: Acute non-ST elevation myocardial infarction COMPLICATION: None APPROACH: Right radial artery LEVEL OF SEDATION: Moderate with a sedation length of 11 minutes PROCEDURE DESCRIPTION: After obtaining an informed consent, the patient was brought to cardiac recyclable materials distributor. Local anesthesia was performed using lidocaine subcutaneously. The right radial artery was cannulated using Seldinger technique, the guidewire passed easily, following that we advanced a 5-Bhutanese sheath dilator assembly, the wire and dilator were removed and sheath was flushed. Following that, 2 mg of verapamil along with 5000 unit heparin were given. Selective right and left coronary angiogram using a 6-Bhutanese JR4 and JL 3.5 catheters. Following that we did left heart catheterization using 6-Bhutanese pigtail catheter. The procedure was completed there was no complication. SELECTIVE CORONARY ANGIOGRAM: The right coronary artery: Large caliber vessel and a dominant vessel. The RCA is angiographically normal. Distally bifurcates into PDA and PLV branches and both appeared to be angiographically normal Left main: Is angiographically normal. Bifurcates into an LCx and LAD The left circumflex: Large caliber vessel nondominant vessel. The proximal LCx appeared to be suspicious for spontaneous urinary artery dissection (SCAD). The mid and distal left circumflex/OM appeared to be angiographically normal The left anterior descending artery: Is angiographically normal and gives rises into a diagonal branch which seems to be normal as well. HEMODYNAMICS: The LVEDP was 11 mmHg with no significant gradient across aortic valve CONCLUSION: 1. Possible spontaneous coronary artery dissection involving the proximal LCx was CALLUM-3 flow and no contrast staining 2. Normal left main coronary artery and left anterior descending artery and right coronary artery 3. Normal left sided filling pressure POSTPROCEDURE MANAGEMENT: Medical treatment Rule out myocarditis Follow-up with the patient
[2022-10-18] MEDS: METOPROLOL TARTRATE 12.5 MG TAB PO SCH ×2 (18:07→19:57)
[2022-10-18] MEDS: LEVOTHYROXINE 75 MCG TAB PO SCH (18:07)
[2022-10-19] MEDS: LEVOTHYROXINE 75 MCG TAB PO SCH (06:28)
[2022-10-19] MEDS: MULTIVITAMINS, THERA 1 EACH TAB PO SCH (08:27)
[2022-10-19] MEDS: METOPROLOL TARTRATE 12.5 MG TAB PO SCH (08:27)
[2022-10-19] MEDS: ATORVASTATIN 80 MG TAB PO SCH (08:27)
[2022-10-19] MEDS ORDERED: METOPROLOL TARTRATE 12.5 MG TAB PO STA (08:38)
[2022-10-19 08:58] LABS: Basophils % (A) 0 %; Eosinophils # (A) 0.1 k/uL (0-0.7); Eosinophils % (A) 2 %; HCT 38.5 % (34.0-46.0); Lymphocytes # (A) 1.2 k/uL (1.0-4.8); Lymphocytes % (A) 16 %; MCH 30.8 pg (25.0-35.0); MCHC 33.8 g/dL (31.0-37.0); MCV 91.2 fL (80.0-100.0); Monocytes # (A) 0.4 k/uL (0-1.0); Monocytes % (A) 6 %; Neutrophils # (A) 5.6 k/uL (1.3-7.7); Neutrophils % (A) 76 %; Platelet Count 174 k/uL (150-450); RBC 4.22 m/uL (3.80-5.40); RDW 13.6 % (11.5-15.5); WBC 7.4 k/uL (3.8-10.6)
[2022-10-19] MEDS ORDERED: ASPIRIN 325 MG TAB PO SCH (09:00)
[2022-10-19 09:11] LABS: ALT 27 U/L (4-34); AST 50 U/L (14-36); African American GFR (CKD) >90 (>60 ml/min/1.73 sqM); Albumin 3.2 g/dL (3.5-5.0); Alkaline Phosphatase 50 U/L (38-126); Anion Gap 5 mmol/L; Blood Urea Nitrogen 10 mg/dL (7-17); Calcium 8.6 mg/dL (8.4-10.2); Carbon Dioxide 19 mmol/L (22-30); Chloride 113 mmol/L (98-107); Glucose 117 mg/dL (74-99); Magnesium 1.9 mg/dL (1.6-2.3); Non-African American GFR(CKD) >90 (>60 ml/min/1.73 sqM); Sodium 137 mmol/L (137-145); Total Bilirubin 0.6 mg/dL (0.2-1.3); Total Protein 5.4 g/dL (6.3-8.2)
--- NOTE | 2022-10-19 09:13 | P.PN ---
Subjective Progress Note Date: 10/19/22 History of present illness: This is a 52 year old female with no previous cardiac history. She has a past medical history of hypothyroidism. We have been asked to evaluate her for non- ST elevated myocardial infarction. Patient states she woke up and her ears, lips and throat all felt swollen. Then she developed chest pressure and squeezing sensation in her chest around to her back and arm. This all started around 5 AM when she went to get up to the bathroom. She also had some shortness of breath and sweats. She denies any syncopal episodes, no lightheadedness or dizziness, no palpitations. Patient states the pain lasted until she arrived to the hospital. The patient is seen at shortly after 12 that just eaten lunch. EKG nonspecific inferior changes Chest x-ray:No acute process. Echocardiogram obtained 10/18/2022 revealed normal LV function, moderate aortic regurgitation. CBC unremarkable. D-dimer less than 0.17. Electrolytes and renal function normal. Blood sugar 112. Troponin 0.129, 16.5. Influenza A, influenza B, RSV, Covid 19, group A strep not detected. Home cardiac medications: none 10/20 Yesterday, patient underwent cardiac catheterization with Dr. Land which revealed possible spontaneous coronary artery dissection involving the proximal left circumflex with no flow limitation. Normal left main coronary artery and LAD and right coronary artery. Normal left-sided filling pressures. Recommendations for medical treatment. Patient is currently on aspirin, statin and beta jaylin. We will add and Plavix as well as increase her beta jaylin today. Patient was noted to have a run of 8 beats of V. tach nonsustained. This occurred last evening around 10 PM. Patient has been afebrile, heart rate in the 60s and 70s, blood pressure 120/59, pulse ox 90% on room air. Repeat hemoglobin is 13, WBC 7.4. Chemistry panel is pending at the time of this dictation. Physical examination: Gen: This is a 52-year-old female. She is resting in chair and heydi ears to be comfortable and in no acute distress VS: reviewed HEENT: Head is atraumatic, normocephalic. Pupils equal, round. Sclerae is anicteric. NECK: Supple. No JVD. LUNGS: Clear to auscultation. No wheezes or rhonchi. No intercostal retractions. HEART: Regular rate and rhythm. No murmur. EXTREMITIES: No pedal edema. No calf tenderness. NEUROLOGICAL: Patient is awake, alert and oriented x3. Assessment: Acute coronary syndrome ruled out is no coronary artery disease found on cardiac catheterization Elevated troponins possibly related to pericarditis versus myocarditis versus spontaneous coronary artery dissection hypothyroidism Plan: Continue aspirin changed to 81 mg, and add Plavix 75 mg daily Increase metoprolol tartrate to 25 mg twice daily Continue statin 80 mg daily Obtain to repeat troponins, BMP, magnesium this morning Further recommendations to follow based upon clinical course Anticipate possible discharge tomorrow. Nurse practitioner note has been reviewed, I agree with documented findings and plan of care. Patient was seen and examined. Objective - Vital Signs Vital signs: Vital Signs Temp 98.3 F 10/19/22 03:36 Pulse 65 10/19/22 03:36 Resp 18 10/19/22 03:36 BP 120/59 10/19/22 03:36 Pulse Ox 98 10/19/22 03:36 FiO2 Intake & Output 10/18/22 10/19/22 10/19/22 18:59 06:59 18:59 Intake Total 590 600 Balance 590 600 Weight 83.915 kg Intake: IV 50 Oral 540 600 Other: # Voids 2 - Labs CBC & Chem 7: 10/19/22 08:22 10/18/22 07:06 Labs: Abnormal Lab Results - Last 24 Hours (Table) 10/18/22 10/18/22 10/18/22 Range/Units 11:18 12:28 15:18 APTT 61.2 H (22.0-30.0) sec Troponin I 16.500 H* 18.700 H* (0.000-0.034) ng/mL
[2022-10-19 09:19] LABS: Prothrombin Time 10.4 sec (9.0-12.0)
[2022-10-19] MEDS: METOPROLOL TARTRATE 25 MG TAB PO SCH ×2 (10:02→19:59)
[2022-10-19] MEDS: ASPIRIN 81 MG PO SCH (10:02)
--- NOTE | 2022-10-19 11:54 | P.PN ---
Subjective Progress Note Date: 10/19/22 she is 52-year-old lady with past medical history significant for hypothyroidism presented to the ER this morning because of complaint of ear fullness and not feeling well. Patient stated that she was all right when she woke up this morning when she started noticing that her ears were full. Started also feeling generalized body aches, this was followed by her noticing that she was having chest pressure that was central in location and nonradiating, no aggravating or relieving factors associated with this chest pressure. Patient also complaining of shortness of breath on exertion for the last few days. Patient also complaining of swelling of feet. Because of this feeling of uneasiness she came to the ER Initial lab work done in the ER showed WBC 7.7, hemoglobin 13.9, platelet count 193, sodium 137, potassium 3.7, BUN 15, creatinine 0.63, d-dimer 0.17, troponin 0.129 EKG done in the ER ventricle rate 62, QRS 93, no ST segment elevation or T-wave inversion seen Chest x-ray done in the ER showed no acute cardiopulmonary process Patient was started on pharmacy dose heparin and was admitted to medicine service 10/19. Patient seen and examined. 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 Normal left main coronary artery and LAD and right coronary artery. Normal left-sided filling pressures. Currently patient is symptom-free. Not having any shortness of breath. Encourage patient to ambulate REVIEW OF SYSTEMS: CONSTITUTIONAL: No fever, no malaise,. CARDIOVASCULAR: No chest pain, no palpitations, no syncope. PULMONARY: No shortness of breath, no cough, GASTROINTESTINAL: No diarrhea, no nausea, no vomiting, no abdominal pain. NEUROLOGICAL: No headaches, no weakness, PHYSICAL EXAMINATION: GENERAL: The patient is alert and oriented x3, not in any acute distress. Well developed, well nourished. HEENT: Pupils are round and equally reacting to light. EOMI. No scleral icterus. No conjunctival pallor. Normocephalic, atraumatic. No pharyngeal erythema. No thyromegaly. CARDIOVASCULAR: S1 and S2 present. No murmurs, rubs, or gallops. PULMONARY: Chest is clear to auscultation, no wheezing or crackles. ABDOMEN: Soft, nontender, nondistended, normoactive bowel sounds. No palpable organomegaly. MUSCULOSKELETAL: No joint swelling or deformity. EXTREMITIES: No cyanosis, clubbing, or pedal edema. NEUROLOGICAL: Gross neurological examination did not reveal any focal deficits. SKIN: No rashes. Assessment and plan Acute coronary syndrome ruled out is no coronary artery disease found on cardiac catheterization Elevated troponins possibly related to pericarditis versus myocarditis versus spontaneous coronary artery dissection Hypothyroidism nOn sustained V. 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 Normal left main coronary artery and LAD and right coronary artery. Normal left-sided filling pressures. Cardiology recommended medical management Labs and medication were reviewed.. Continue same treatment. Continue with symptomatic treatment. Resume home medication. Monitor labs and vitals. DVT and GI prophylaxis. Further recommendations as per clinical course of the patient Dictation was produced using [employer] dictation software. please excuse any grammatical, word or spelling errors. Objective - Vital Signs Vital signs: Vital Signs Temp 97.8 F 10/19/22 08:00 Pulse 66 10/19/22 08:00 Resp 16 10/19/22 08:00 BP 135/58 10/19/22 08:00 Pulse Ox 99 10/19/22 08:00 FiO2 Intake & Output 10/18/22 10/19/22 10/19/22 18:59 06:59 18:59 Intake Total 590 600 Balance 590 600 Weight 83.915 kg Intake: IV 50 Oral 540 600 Other: # Voids 2 - Labs CBC & Chem 7: 10/19/22 08:22 10/19/22 08:36 Labs: Abnormal Lab Results - Last 24 Hours (Table) 10/18/22 10/18/22 10/19/22 Range/Units 12:28 15:18 08:36 Chloride 113 H (98-107) mmol/L Carbon Dioxide 19 L (22-30) mmol/L Glucose 117 H (74-99) mg/dL AST 50 H (14-36) U/L Troponin I 16.500 H* 18.700 H* (0.000-0.034) ng/mL Total Protein 5.4 L (6.3-8.2) g/dL Albumin 3.2 L (3.5-5.0) g/dL
[2022-10-19] MEDS: CLOPIDOGREL 75 MG TAB PO SCH (12:05)
[2022-10-19 17:59] LABS: Chol/HDL Ratio 3.41 Ratio; LDL Cholesterol,Calculated 103.6 mg/dL (0.0-131.0)
[2022-10-20] MEDS: LEVOTHYROXINE 75 MCG TAB PO SCH (06:47)
--- NOTE | 2022-10-20 06:59 | P.PN ---
Subjective Progress Note Date: 10/20/22 Principal diagnosis: Elevated cardiac enzymes This is a 52-year-old female patient with a past medical history significant for dyslipidemia and significant family history of cardiac disease presented to the hospital with chest discomfort and ruled in for acute coronary event. She underwent an echo which revealed normal LV systolic function and to heart catheterization revealed no obstructive disease was possible spontaneous coronary dissection of the left circumflex coronary artery 10/20/2022 The patient was seen and evaluated this morning she is asymptomatic and hemodyn amic is stable. Currently she is on dual antiplatelet therapy along with beta jaylin and statin. She is doing well and she would like to go home. From the cardiac vascular standpoint of view, the patient can be discharged home The examination is remarkable for stable vital signs with a regular rhythm and clear breathing sounds bilaterally and no lower extremity edema Assessment Acute non-ST elevation myocardial infarction Possible spontaneous coronary dissection Preserved LV systolic function Dyslipidemia Plan Continue the current medical regimen The patient can be discharged home Objective - Vital Signs Vital signs: Vital Signs Temp 97.9 F 10/20/22 04:00 Pulse 58 L 10/20/22 04:00 Resp 15 10/20/22 04:00 BP 135/65 10/20/22 04:00 Pulse Ox 99 10/20/22 04:00 FiO2 Intake & Output 10/19/22 10/19/22 10/20/22 06:59 18:59 06:59 Intake Total 600 118 Balance 600 118 Weight 82.5 kg Intake: Oral 600 118 Other: # Voids 2 1 - Labs CBC & Chem 7: 10/19/22 08:22 10/19/22 08:36 Labs: Abnormal Lab Results - Last 24 Hours (Table) 10/19/22 10/19/22 10/19/22 Range/Units 08:36 12:10 17:57 Chloride 113 H (98-107) mmol/L Carbon Dioxide 19 L (22-30) mmol/L Glucose 117 H (74-99) mg/dL AST 50 H (14-36) U/L Troponin I 6.630 H* 4.860 H* (0.000-0.034) ng/mL Total Protein 5.4 L (6.3-8.2) g/dL Albumin 3.2 L (3.5-5.0) g/dL
[2022-10-20] MEDS: CLOPIDOGREL 75 MG TAB PO SCH (09:48)
[2022-10-20] MEDS: METOPROLOL TARTRATE 25 MG TAB PO SCH (09:48)
[2022-10-20] MEDS: MULTIVITAMINS, THERA 1 EACH TAB PO SCH (09:48)
[2022-10-20] MEDS: ATORVASTATIN 80 MG TAB PO SCH (09:48)
[2022-10-20] MEDS: ASPIRIN 81 MG PO SCH (09:49)
[2022-10-20 12:49] VITALS: BP 111/69; PULSE 60; RESP 14; TEMP 98
--- NOTE | 2022-10-20 13:19 | P.DS ---
Providers Date of admission: 10/18/22 08:39 Expected date of discharge: 10/20/22 Attending physician: Benoit Ferrera MD Consults: 10/18/22 08:58 Consult Physician Urgent Consulting Provider: James Land Consult Reason/Comments: NSTEMI Do you want consulting provider notified?: Yes Primary care physician: Dakota Mckenzie [facility] Course: Discharge diagnoses; Acute coronary syndrome ruled out is no coronary artery disease found on cardiac catheterization Elevated troponins possibly related to pericarditis versus myocarditis versus spontaneous coronary artery dissection Hypothyroidism nOn sustained V. tach Hospital course; she is 52-year-old lady with past medical history significant for hypothyroidism presented to the ER this morning because of complaint of ear fullness and not feeling well. Patient stated that she was all right when she woke up this morning when she started noticing that her ears were full. Started also feeling generalized body aches, this was followed by her noticing that she was having chest pressure that was central in location and nonradiating, no aggravating or relieving factors associated with this chest pressure. Patient also complaining of shortness of breath on exertion for the last few days. Patient also complaining of swelling of feet. Because of this feeling of uneasiness she came to the ER Initial lab work done in the ER showed WBC 7.7, hemoglobin 13.9, platelet count 193, sodium 137, potassium 3.7, BUN 15, creatinine 0.63, d-dimer 0.17, troponin 0.129 EKG done in the ER ventricle rate 62, QRS 93, no ST segment elevation or T-wave inversion seen Chest x-ray done in the ER showed no acute cardiopulmonary process Patient was started on pharmacy dose heparin and was admitted to medicine service 10/19. Patient seen and examined. 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 Normal left main coronary artery and LAD and right coronary artery. Normal left-sided filling pressures. 2-D echo done showed normal LV systolic function, moderate aortic regurg Currently patient is symptom-free. Not having any shortness of breath. Encourage patient to ambulate 10/20. Patient seen and examined. No acute issues overnight. Cardiology recommended discharging patient on dual antiplatelet therapy, beta blockers, statin PHYSICAL EXAMINATION: GENERAL: The patient is alert and oriented x3, not in any acute distress. Well developed, well nourished. HEENT: Pupils are round and equally reacting to light. EOMI. No scleral icterus. No conjunctival pallor. Normocephalic, atraumatic. No pharyngeal erythema. No thyromegaly. CARDIOVASCULAR: S1 and S2 present. No murmurs, rubs, or gallops. PULMONARY: Chest is clear to auscultation, no wheezing or crackles. ABDOMEN: Soft, nontender, nondistended, normoactive bowel sounds. No palpable organomegaly. MUSCULOSKELETAL: No joint swelling or deformity. EXTREMITIES: No cyanosis, clubbing, or pedal edema. NEUROLOGICAL: Gross neurological examination did not reveal any focal deficits. SKIN: No rashes. Dictation was produced using [employer] dictation software. please excuse any grammatical, word or spelling errors. Patient Condition at Discharge: Fair Plan - Discharge Summary Discharge Rx Participant: No New Discharge Prescriptions: New Metoprolol Tartrate [Lopressor] 25 mg PO BID 30 Days #60 tab Nitroglycerin Sl Tabs [Nitrostat] 0.4 mg SUBLINGUAL Q5M PRN #30 tab PRN Reason: Chest Pain Clopidogrel [Plavix] 75 mg PO DAILY 30 Days #30 tab Aspirin 81 mg PO DAILY 30 Days #30 tab Atorvastatin [Lipitor] 80 mg PO DAILY #30 tab Continue Multivitamins, Thera [Multivitamin (formulary)] 1 tab PO DAILY Levothyroxine Sodium [Synthroid] 75 mcg PO DAILY Discharge Medication List Levothyroxine Sodium [Synthroid] 75 mcg PO DAILY 11/09/20 [History] Multivitamins, Thera [Multivitamin (formulary)] 1 tab PO DAILY 11/09/20 [History] Aspirin 81 mg PO DAILY 30 Days #30 tab 10/20/22 [Rx] Atorvastatin [Lipitor] 80 mg PO DAILY #30 tab 10/20/22 [Rx] Clopidogrel [Plavix] 75 mg PO DAILY 30 Days #30 tab 10/20/22 [Rx] Metoprolol Tartrate [Lopressor] 25 mg PO BID 30 Days #60 tab 10/20/22 [Rx] Nitroglycerin Sl Tabs [Nitrostat] 0.4 mg SUBLINGUAL Q5M PRN #30 tab 10/20/22 [Rx] Follow up Appointment(s)/Referral(s): Dakota Mckenzie DO [Primary Care Provider] - 1-2 days James Land MD [STAFF PHYSICIAN] - 1 Week Discharge Disposition: HOME SELF-CARE
== END 2022-10-20 12:27 | disposition home or self-care (01) | DRG 287 ==
LOC: EC 06:31 → 3SCARD 08:39
PROVIDERS: ADMIT Internal Medicine; ATTEND Internal Medicine
PROC: 4A023N7 Measurement of Cardiac Sampling and Pressure, Left Heart, Percutaneous Approach (ICD-10-PCS; principal; 2022-10-18 14:30)
PROC: B2111ZZ Fluoroscopy of Multiple Coronary Arteries using Low Osmolar Contrast (ICD-10-PCS; principal; 2022-10-18 14:30)
DX: I25.42 Coronary artery dissection (principal); I31.9 Disease of pericardium, unspecified; I42.9 Cardiomyopathy, unspecified; I47.20 Ventricular tachycardia, unspecified; E03.9 Hypothyroidism, unspecified; E78.5 Hyperlipidemia, unspecified; I35.1 Nonrheumatic aortic (valve) insufficiency; Z79.890 Hormone replacement therapy; Z82.49 Family history of ischemic heart disease and other diseases of the circulatory system; Z20.822 Contact with and (suspected) exposure to COVID-19
CPT/HCPCS: 36415; 71046; 80053; 80061; 82607; 83036; 83735; 84443; 84484; 85025; 85379; 85610; 85730; 87636; 87651; 93005; 93306; 93458; 96361; 96365; 96375; 99291

== ENCOUNTER → 2023-01-15 | Outpatient (CLI) | payer BC | END | disposition home or self-care (01) | LOC: LABWHC1 09:20 | PROVIDERS: ATTEND Obstetrics & Gynecology Obstetrics | DX: Z00.00 Encounter for general adult medical examination without abnormal findings (principal) | CPT/HCPCS: 36415; 84403 ==

== ENCOUNTER → 2023-02-04 | Outpatient (CLI) | payer BC ==
--- NOTE | 2023-02-05 11:44 | MM ---
Reason for Exam: Screening (asymptomatic). Last screening mammogram was performed 12 month(s) ago. Patient History: Menarche at age 8. First Full-Term at age 22. Postmenopausal. Patient has history of breast feeding. Risk Values: Ivelisse 5 year model risk: 1.1%. NCI Lifetime model risk: 8.2%. Prior Study Comparison: 10/23/2017 Bilateral Screening Mammogram, [facility]. 11/25/2020 Bilateral Screening Mammogram, [facility]. 02/01/2022 Bilateral MG 3D screening mammo w/cad, [facility]. Tissue Density: The breast tissue is heterogeneously dense. This may lower the sensitivity of mammography. Findings: Analyzed By CAD. There is no suspicious group of microcalcifications or new suspicious mass in either breast. Overall Assessment: Benign, BI-RAD 2 Management: Screening Mammogram of both breasts in 1 year. . Patient should continue monthly self-breast exams. A clinical breast exam by your physician is recommended on an annual basis. This exam should not preclude additional follow-up of suspicious palpable abnormalities. Note on Ivelisse scores and lifetime risk: 1. A Ivelisse score greater than 3% is considered moderate risk. If this is the case, consider specialist referral to assess eligibility for a risk reducing agent. 2. If overall lifetime risk for the development of breast cancer is 20% or higher, the patient may qualify for future screening with alternating mammogram and breast MRI. Electronically signed and approved by: Ariel Courtney M.D. Radiologis
== END | disposition home or self-care (01) ==
LOC: RADMAMWWP 08:04
PROVIDERS: ATTEND Obstetrics & Gynecology Obstetrics
DX: Z12.31 Encounter for screening mammogram for malignant neoplasm of breast (principal); Z78.0 Asymptomatic menopausal state
CPT/HCPCS: 77063; 77067

== ENCOUNTER → 2024-05-06 | Outpatient (CLI) | payer BC ==
--- NOTE | 2024-05-06 09:13 | MM ---
Reason for Exam: Screening (asymptomatic). Last mammogram was performed 1 year(s) and 3 month(s) ago. Patient History: Menarche at age 8. First Full-Term at age 22. Postmenopausal. Patient has history of breast feeding. Risk Values: Ivelisse 5 year model risk: 1.2%. NCI Lifetime model risk: 7.9%. Prior Study Comparison: 11/25/2020 Bilateral Screening Mammogram, [facility]. 02/01/2022 Bilateral MG 3D screening mammo w/cad, [facility]. 02/04/2023 Bilateral MG 3D screening mammo w/cad, [facility]. Tissue Density: There are scattered areas of fibroglandular density. Findings: Analyzed By CAD. There is no suspicious group of microcalcifications or new suspicious mass in either breast. Overall Assessment: Negative, BI-RAD 1 Management: Screening Mammogram of both breasts in 1 year. Patient should continue monthly self-breast exams. A clinical breast exam by your physician is recommended on an annual basis. This exam should not preclude additional follow-up of suspicious palpable abnormalities. Note on Ivelisse scores and lifetime risk: 1. A Ivelisse score greater than 3% is considered moderate risk. If this is the case, consider specialist referral to assess eligibility for a risk reducing agent. 2. If overall lifetime risk for the development of breast cancer is 20% or higher, the patient may qualify for future screening with alternating mammogram and breast MRI. [facility], , 05/06/2024 9:10 AM. Electronically signed and approved by: Shannan Zhou M.D. Radiologist
== END | disposition home or self-care (01) ==
LOC: RADMAMWWP 07:59
PROVIDERS: ATTEND Family Medicine
DX: Z12.31 Encounter for screening mammogram for malignant neoplasm of breast (principal); R92.323 Mammographic fibroglandular density, bilateral breasts; Z78.0 Asymptomatic menopausal state
CPT/HCPCS: 77063; 77067